=== PATIENT | male | born 1960 | race Asian ===

== ENCOUNTER 2019-10-25 10:27 | Emergency (ER) | payer OTHER ==
[~2019-10-25] VITALS: Ht 172.7 cm; Wt 76.2 kg
[2019-10-25 11:25] VITALS: BP 132/83
== END 2019-10-25 11:48 | disposition home or self-care (01) ==
LOC: ER 10:27
DX: D17.0 Benign lipomatous neoplasm of skin and subcutaneous tissue of head, face and neck (principal); K21.9 Gastro-esophageal reflux disease without esophagitis

== ENCOUNTER 2019-12-08 09:46 | Inpatient (IN) | payer MEDICAID, OTHER ==
[~2019-12-08] VITALS: Ht 172.7 cm; Wt 68.9 kg
[2019-12-08 10:31] LABS: Basophils # (auto) 0 10 ^3/uL (0-0.2); Basophils % (auto) 0.5 % (0.0-2.0); Eosinophils # (auto) 0.2 10 ^3/uL (0-0.8); Eosinophils % (auto) 3.9 % (0.0-7.0); Hematocrit 34.3 % (41.0-53.0); Hemoglobin 11.7 g/dL (13.5-17.5); Lymphocytes # (auto) 0.4 10 ^3/uL (0.4-5.4); Lymphocytes % (auto) 8.9 % (10.0-50.0); Mean Corpuscular Hemoglobin 30.8 pg (28.0-32.0); Mean Corpuscular Volume 90.8 fL (80.0-100.0); Monocytes # (auto) 0.4 10 ^3/uL (0-1.3); Monocytes % (auto) 8.2 % (0.0-12.0); Neutrophils # (auto) 3.9 10 ^3/uL (1.6-8.6); Neutrophils % (auto) 78.5 % (37.0-80.0); Nucleated Red Blood Cells % 0.1 %; Platelet Count (auto) 281 10^3/uL (140-450); Red Blood Cells 3.78 10^6/uL (4.5-5.90); Red Cell Distribution Width 13.6 % (11.8-14.3)
[2019-12-08 10:47] LABS: Albumin 4.1 g/dL (3.4-5.0); Anion Gap 10 (5-15); Blood Urea Nitrogen 15 mg/dL (7-18); Calcium 8.7 mg/dL (8.5-10.1); Carbon Dioxide 17 mmol/L (21-32); Chloride 90 mmol/L (98-107); Glucose 109 mg/dL (74-106); Potassium 4.6 mmol/L (3.5-5.1)
[2019-12-08 10:52] LABS: Alanine Aminotransferase 36 U/L (16-61); Alkaline Phosphatase 92 U/L (45-117); Aspartate Aminotransferase 43 U/L (15-37); BUN/Creatinine Ratio 8.9; Bilirubin, Total 0.3 mg/dL (0.2-1.0); GFR African American 55 mL/min; GFR Non-African American 45 mL/min; Total Protein 7.9 g/dL (6.4-8.2)
[2019-12-08 10:57] LABS: Sodium 117 mmol/L (136-145)
[2019-12-08] MEDS ORDERED: SODIUM CHLORIDE 0.9% 1,000 ML IV ONE ×2 (10:57)
[2019-12-08] MEDS ORDERED: TRAZ150T79 PO (11:48)
[2019-12-08] MEDS ORDERED: OLAN20TA13 PO (11:49)
[2019-12-08] MEDS ORDERED: GABA300C10 PO (11:51)
[2019-12-08] MEDS ORDERED: METO-158 PO (11:52)
[2019-12-08] MEDS ORDERED: FAMO-12 PO (11:52)
[2019-12-08] MEDS ORDERED: INSLANTI SC (11:54)
[2019-12-08 12:17] LABS: Urine WBC None Seen /hpf (0 - 3)
[2019-12-08 12:27] LABS: Urine Bacteria NONE SEEN /hpf (None Seen); Urine Blood Negative /uL (Negative); Urine Specific Gravity 1.006 (1.001-1.035)
[2019-12-08] MEDS ORDERED: NITROGLYCERIN 0.4 MG SL TAB SL PRN (14:00)
[2019-12-08] MEDS ORDERED: MORPHINE SULF INJ 2 MG/ML SYRINGE 1ML IV PRN (14:00)
[2019-12-08] MEDS ORDERED: ALBUTEROL SULF 2.5 MG/0.5ML(0.5%) NEB SOLN NEB PRN (14:45)
[2019-12-08] MEDS ORDERED: PROMETHAZINE HCL 25 MG/ML 1ML IV PRN (14:45)
[2019-12-08] MEDS ORDERED: TEMAZEPAM 15 MG CAP PO PRN (14:45)
[2019-12-08] MEDS ORDERED: LACTULOSE 20Gm/30ML SOLN PO PRN (14:45)
[2019-12-08] MEDS ORDERED: DEXTROSE (50%) 50ML SYRG IV PRN (14:45)
[2019-12-08 15:31] VITALS: BP 100/65
[2019-12-08] MEDS: SODIUM CHLORIDE 0.9% 1,000 ML IV SCH (16:10)
[2019-12-08 16:12] VITALS: BP 133/78
[2019-12-08] MEDS: ACCU-CHEK COMFORT CURVE STRIP VI SCH ×2 (17:00→22:00)
[2019-12-08] MEDS: DOXYCYCLINE 100MG/250ML 250 ML IV SCH (17:00)
[2019-12-08] MEDS: InsuLIN REG 1unit/0.01ml Soln (100units/ml) SC SCH ×2 (17:00→22:00)
[2019-12-08 20:00] VITALS: BP 142/79
[2019-12-08 22:00] VITALS: BP 110/66
[2019-12-08] MEDS: FAMOTIDINE 20 MG TAB PO SCH (22:55)
[2019-12-09] MEDS: SODIUM CHLORIDE 0.9% 1,000 ML IV SCH ×3 (02:29→20:38)
[2019-12-09] MEDS: DOXYCYCLINE 100MG/250ML 250 ML IV SCH ×2 (02:41→14:14)
[2019-12-09 05:00] VITALS: BP 118/74
[2019-12-09] MEDS: ACCU-CHEK COMFORT CURVE STRIP VI SCH ×4 (06:47→21:43)
[2019-12-09] MEDS: InsuLIN REG 1unit/0.01ml Soln (100units/ml) SC SCH ×4 (06:49→21:43)
[2019-12-09 07:19] LABS: Albumin 4.2 g/dL (3.4-5.0); Calcium 9.2 mg/dL (8.5-10.1); Potassium 4.6 mmol/L (3.5-5.1)
[2019-12-09 07:25] LABS: BUN/Creatinine Ratio 9.9; Bilirubin, Total 0.3 mg/dL (0.2-1.0)
[2019-12-09 08:30] VITALS: BP 114/77
[2019-12-09] MEDS: FAMOTIDINE 20 MG TAB PO SCH ×2 (11:25→21:43)
[2019-12-09] MEDS: ENOXAPARIN SOD 40 MG/0.4 ML SYRINGE SC SCH (11:25)
[2019-12-09 12:30] VITALS: BP 127/66
[2019-12-09] MEDS ORDERED: IBUP800T24 PO (16:28)
[2019-12-09] MEDS ORDERED: DOCU-147 PO (16:28)
[2019-12-09] MEDS ORDERED: LORA-622 PO (16:28)
[2019-12-09] MEDS ORDERED: METF-372 PO (16:28)
[2019-12-09] MEDS ORDERED: LOSA100T22 PO (16:28)
[2019-12-09] MEDS ORDERED: TEMA30CA5 PO (16:28)
[2019-12-09] MEDS ORDERED: SIMV10TA73 PO (16:28)
[2019-12-09 17:29] VITALS: BP 148/101
[2019-12-09] MEDS: traMADol HCL 50 MG TAB PO PRN (21:44)
[2019-12-09 22:00] VITALS: BP 150/101
[2019-12-10] MEDS: DOXYCYCLINE 100MG/250ML 250 ML IV SCH ×2 (02:59→13:58)
[2019-12-10] MEDS ORDERED: TEMAZEPAM 15 MG CAP PO PRN (04:45)
[2019-12-10 05:00] VITALS: BP 159/100
[2019-12-10] MEDS ORDERED: DEXTROSE (50%) 50ML SYRG IV PRN (05:00)
[2019-12-10] MEDS ORDERED: IBUPROFEN 800 MG TAB PO SCH (06:00)
[2019-12-10] MEDS: ACCU-CHEK COMFORT CURVE STRIP VI SCH ×4 (06:17→21:29)
[2019-12-10] MEDS: GABAPENTIN 300 MG CAP PO SCH ×3 (06:17→21:29)
[2019-12-10] MEDS: InsuLIN REG 1unit/0.01ml Soln (100units/ml) SC SCH ×4 (06:18→21:32)
[2019-12-10] MEDS: SODIUM CHLORIDE 0.9% 1,000 ML IV SCH (06:18)
[2019-12-10 06:45] VITALS: BP 143/104
[2019-12-10 09:00] VITALS: BP 181/101
[2019-12-10] MEDS: OLANZapine 5 MG TAB PO SCH (09:49)
[2019-12-10] MEDS: ENOXAPARIN SOD 40 MG/0.4 ML SYRINGE SC SCH (09:49)
[2019-12-10] MEDS: FAMOTIDINE 20 MG TAB PO SCH ×2 (09:50→21:29)
[2019-12-10] MEDS: LORATADINE 10 MG TAB PO SCH (09:50)
[2019-12-10] MEDS: LOSARTAN POTASSIUM 50 MG TAB PO SCH (09:52)
[2019-12-10] MEDS: INSULIN LANTUS (GLARGINE) 1 /0.01ml (100units/ml) SC SCH (09:58)
[2019-12-10] MEDS ORDERED: METOPROLOL TARTRATE 50 MG TAB PO SCH (10:00)
[2019-12-10] MEDS ORDERED: LABETALOL HCL 5 MG/ML 4ML SYRINGE IV PRN (11:15)
[2019-12-10 12:04] LABS: Calcium 8.9 mg/dL (8.5-10.1); Potassium 4.8 mmol/L (3.5-5.1)
[2019-12-10 12:06] LABS: BUN/Creatinine Ratio 9.3
[2019-12-10 13:00] VITALS: BP 140/89
[2019-12-10] MEDS ORDERED: METOPROLOL SUCCINATE XL 50 MG TAB PO ONE (13:45)
[2019-12-10] MEDS: MAGNESIUM SULFATE 1GM/100ML 100 ML IV SCH ×2 (16:17→16:36)
[2019-12-10 17:18] VITALS: BP 142/95
[2019-12-10] MEDS: MAGNESIUM OXIDE 400 MG TAB PO SCH (21:28)
[2019-12-10] MEDS: ATORVASTATIN 20 MG TAB PO SCH (21:28)
[2019-12-10] MEDS ORDERED: InsuLIN REG 1unit/0.01ml Soln (100units/ml) SC SCH (22:00)
[2019-12-11] MEDS: DOXYCYCLINE 100MG/250ML 250 ML IV SCH (02:30)
[2019-12-11] MEDS: GABAPENTIN 300 MG CAP PO SCH ×3 (05:08→21:05)
[2019-12-11 05:30] VITALS: BP 106/70
[2019-12-11] MEDS: ACCU-CHEK COMFORT CURVE STRIP VI SCH ×4 (05:54→21:06)
[2019-12-11] MEDS: InsuLIN REG 1unit/0.01ml Soln (100units/ml) SC SCH ×4 (05:56→21:08)
[2019-12-11 06:35] LABS: BUN/Creatinine Ratio 9.9; Calcium 9.3 mg/dL (8.5-10.1); Potassium 4.6 mmol/L (3.5-5.1)
[2019-12-11 09:00] VITALS: BP 103/75
[2019-12-11] MEDS: LORATADINE 10 MG TAB PO SCH (10:41)
[2019-12-11] MEDS: LOSARTAN POTASSIUM 50 MG TAB PO SCH (10:42)
[2019-12-11] MEDS: FAMOTIDINE 20 MG TAB PO SCH ×2 (10:43→21:06)
[2019-12-11] MEDS: MAGNESIUM OXIDE 400 MG TAB PO SCH ×2 (10:43→21:05)
[2019-12-11] MEDS: METOPROLOL TARTRATE 50 MG TAB PO SCH (10:43)
[2019-12-11] MEDS: OLANZapine 5 MG TAB PO SCH (10:43)
[2019-12-11] MEDS: ENOXAPARIN SOD 40 MG/0.4 ML SYRINGE SC SCH (10:44)
[2019-12-11] MEDS: INSULIN LANTUS (GLARGINE) 1 /0.01ml (100units/ml) SC SCH (10:51)
[2019-12-11 13:00] VITALS: BP 93/70
[2019-12-11] MEDS ORDERED: HALOPERIDOL 1 MG TAB PO PRN (13:00)
[2019-12-11 13:20] VITALS: BP 103/75
[2019-12-11 17:00] VITALS: BP 94/67
[2019-12-11] MEDS: ATORVASTATIN 20 MG TAB PO SCH (21:04)
[2019-12-11] MEDS: DOXYCYCLINE 100 MG TAB/CAP PO SCH (21:06)
[2019-12-11] MEDS: ACETAMINOPHEN 500 MG TAB PO PRN (21:06)
[2019-12-11 22:00] VITALS: BP 98/71
[2019-12-11 22:23] LABS: Creatinine, Urine 37 mg/dL (30.0-125.0); Sodium Urine 23 mmol/L (40-220)
[2019-12-12 05:00] VITALS: BP 94/54
[2019-12-12] MEDS: GABAPENTIN 300 MG CAP PO SCH ×3 (05:32→21:08)
[2019-12-12 06:00] VITALS: BP 98/71
[2019-12-12] MEDS: ACETAMINOPHEN 500 MG TAB PO PRN (06:11)
[2019-12-12] MEDS: ACCU-CHEK COMFORT CURVE STRIP VI SCH ×4 (06:11→22:18)
[2019-12-12] MEDS: InsuLIN REG 1unit/0.01ml Soln (100units/ml) SC SCH ×4 (06:16→22:00)
[2019-12-12 06:56] LABS: Basophils # (auto) 0 10 ^3/uL (0-0.2); Basophils % (auto) 0.5 % (0.0-2.0); Eosinophils # (auto) 0.8 10 ^3/uL (0-0.8); Eosinophils % (auto) 14.2 % (0.0-7.0); Hematocrit 35.5 % (41.0-53.0); Hemoglobin 12.2 g/dL (13.5-17.5); Lymphocytes # (auto) 0.7 10 ^3/uL (0.4-5.4); Lymphocytes % (auto) 11.8 % (10.0-50.0); Mean Corpuscular Hgb Conc. 34.2 g/dL (32.0-36.0); Mean Corpuscular Volume 90.6 fL (80.0-100.0); Monocytes # (auto) 0.4 10 ^3/uL (0-1.3); Monocytes % (auto) 7.8 % (0.0-12.0); Neutrophils # (auto) 3.8 10 ^3/uL (1.6-8.6); Neutrophils % (auto) 65.7 % (37.0-80.0); Nucleated Red Blood Cells % 0.1 %; Platelet Count (auto) 303 10^3/uL (140-450); Red Blood Cells 3.92 10^6/uL (4.5-5.90); Red Cell Distribution Width 13.4 % (11.8-14.3); White Blood Cell 5.8 10^3/uL (4.4-10.8)
[2019-12-12 07:15] LABS: BUN/Creatinine Ratio 16.1; Calcium 9.3 mg/dL (8.5-10.1)
[2019-12-12 09:00] VITALS: BP 117/82
[2019-12-12] MEDS: ENOXAPARIN SOD 40 MG/0.4 ML SYRINGE SC SCH (10:04)
[2019-12-12] MEDS: DOXYCYCLINE 100 MG TAB/CAP PO SCH ×2 (10:05→21:08)
[2019-12-12] MEDS: MAGNESIUM OXIDE 400 MG TAB PO SCH ×2 (10:05→21:07)
[2019-12-12] MEDS: LORATADINE 10 MG TAB PO SCH (10:05)
[2019-12-12] MEDS: FAMOTIDINE 20 MG TAB PO SCH ×2 (10:05→21:08)
[2019-12-12] MEDS: OLANZapine 5 MG TAB PO SCH (10:05)
[2019-12-12] MEDS: METOPROLOL TARTRATE 50 MG TAB PO SCH (10:06)
[2019-12-12] MEDS: LOSARTAN POTASSIUM 50 MG TAB PO SCH (10:06)
[2019-12-12] MEDS: INSULIN LANTUS (GLARGINE) 1 /0.01ml (100units/ml) SC SCH (10:28)
[2019-12-12 13:00] VITALS: BP 97/52
[2019-12-12 17:00] VITALS: BP 108/69
[2019-12-12] MEDS: ATORVASTATIN 20 MG TAB PO SCH (21:07)
[2019-12-12 22:00] VITALS: BP 111/71
[2019-12-13 05:00] VITALS: BP 120/77
[2019-12-13] MEDS: GABAPENTIN 300 MG CAP PO SCH ×3 (05:57→21:16)
[2019-12-13 06:03] LABS: Calcium 9.3 mg/dL (8.5-10.1); Potassium 5.4 mmol/L (3.5-5.1)
[2019-12-13] MEDS: ACCU-CHEK COMFORT CURVE STRIP VI SCH ×4 (06:38→21:22)
[2019-12-13] MEDS: InsuLIN REG 1unit/0.01ml Soln (100units/ml) SC SCH ×4 (06:39→21:27)
[2019-12-13 09:00] VITALS: BP 139/81
[2019-12-13] MEDS: METOPROLOL TARTRATE 50 MG TAB PO SCH (10:00)
[2019-12-13] MEDS: ENOXAPARIN SOD 40 MG/0.4 ML SYRINGE SC SCH (10:00)
[2019-12-13] MEDS: LOSARTAN POTASSIUM 50 MG TAB PO SCH (10:00)
[2019-12-13] MEDS: FAMOTIDINE 20 MG TAB PO SCH ×2 (10:21→21:16)
[2019-12-13] MEDS: MAGNESIUM OXIDE 400 MG TAB PO SCH ×2 (10:21→21:16)
[2019-12-13] MEDS: DOXYCYCLINE 100 MG TAB/CAP PO SCH ×2 (10:21→21:16)
[2019-12-13] MEDS: LORATADINE 10 MG TAB PO SCH (10:22)
[2019-12-13] MEDS: OLANZapine 5 MG TAB PO SCH (10:22)
[2019-12-13] MEDS: INSULIN LANTUS (GLARGINE) 1 /0.01ml (100units/ml) SC SCH (10:23)
[2019-12-13 13:00] VITALS: BP 109/72
[2019-12-13] MEDS ORDERED: SODIUM ZIRCONIUM CYCL 10 GM PAK PO ONE (14:15)
[2019-12-13 17:16] VITALS: BP 112/81
[2019-12-13] MEDS: ACETAMINOPHEN 500 MG TAB PO PRN (19:04)
[2019-12-13] MEDS: ATORVASTATIN 20 MG TAB PO SCH (21:16)
[2019-12-13] MEDS: traMADol HCL 50 MG TAB PO PRN (21:20)
[2019-12-13 22:00] VITALS: BP 146/78
[2019-12-14 05:00] VITALS: BP 137/81
[2019-12-14 06:03] LABS: Basophils # (auto) 0 10 ^3/uL (0-0.2); Basophils % (auto) 0.3 % (0.0-2.0); Eosinophils # (auto) 0.6 10 ^3/uL (0-0.8); Eosinophils % (auto) 12.9 % (0.0-7.0); Hematocrit 33.8 % (41.0-53.0); Hemoglobin 11.4 g/dL (13.5-17.5); Lymphocytes # (auto) 0.6 10 ^3/uL (0.4-5.4); Lymphocytes % (auto) 14.4 % (10.0-50.0); Mean Corpuscular Hemoglobin 30.9 pg (28.0-32.0); Mean Corpuscular Hgb Conc. 33.7 g/dL (32.0-36.0); Mean Corpuscular Volume 91.6 fL (80.0-100.0); Monocytes # (auto) 0.5 10 ^3/uL (0-1.3); Monocytes % (auto) 11.3 % (0.0-12.0); Neutrophils # (auto) 2.7 10 ^3/uL (1.6-8.6); Neutrophils % (auto) 61.1 % (37.0-80.0); Nucleated Red Blood Cells % 0.1 %; Platelet Count (auto) 291 10^3/uL (140-450); Red Blood Cells 3.69 10^6/uL (4.5-5.90); Red Cell Distribution Width 13.7 % (11.8-14.3); White Blood Cell 4.5 10^3/uL (4.4-10.8)
[2019-12-14] MEDS: GABAPENTIN 300 MG CAP PO SCH (06:16)
[2019-12-14] MEDS: ACCU-CHEK COMFORT CURVE STRIP VI SCH (06:16)
[2019-12-14] MEDS: traMADol HCL 50 MG TAB PO PRN (06:19)
[2019-12-14] MEDS: InsuLIN REG 1unit/0.01ml Soln (100units/ml) SC SCH (06:24)
[2019-12-14 06:31] LABS: Calcium 8.9 mg/dL (8.5-10.1); Potassium 4.4 mmol/L (3.5-5.1)
[2019-12-14 09:11] VITALS: BP 130/79
[2019-12-14] MEDS: OLANZapine 5 MG TAB PO SCH (10:18)
[2019-12-14] MEDS: FAMOTIDINE 20 MG TAB PO SCH (10:27)
[2019-12-14] MEDS: LOSARTAN POTASSIUM 50 MG TAB PO SCH (10:27)
[2019-12-14] MEDS: METOPROLOL TARTRATE 50 MG TAB PO SCH (10:28)
[2019-12-14] MEDS: LORATADINE 10 MG TAB PO SCH (10:28)
[2019-12-14] MEDS: MAGNESIUM OXIDE 400 MG TAB PO SCH (10:29)
[2019-12-14] MEDS: DOXYCYCLINE 100 MG TAB/CAP PO SCH (10:29)
[2019-12-14] MEDS: ENOXAPARIN SOD 40 MG/0.4 ML SYRINGE SC SCH (10:29)
[2019-12-14] MEDS: INSULIN LANTUS (GLARGINE) 1 /0.01ml (100units/ml) SC SCH (10:53)
[2019-12-14 11:55] VITALS: BP 130/79
[2019-12-14 13:39] VITALS: BP 130/79
== END 2019-12-14 12:42 | disposition home or self-care (01) | DRG 426 ==
LOC: ER 09:46 → TELE 09:47 → TELE-CENTR 15:24
PROVIDERS: ADMIT Internal Medicine; ATTEND Internal Medicine
DX: E87.1 Hypo-osmolality and hyponatremia (principal); N17.0 Acute kidney failure with tubular necrosis; G93.40 Encephalopathy, unspecified; J40 Bronchitis, not specified as acute or chronic; E11.65 Type 2 diabetes mellitus with hyperglycemia; M79.671 Pain in right foot; G89.29 Other chronic pain; I10 Essential (primary) hypertension; K21.9 Gastro-esophageal reflux disease without esophagitis; F17.210 Nicotine dependence, cigarettes, uncomplicated; E78.5 Hyperlipidemia, unspecified; Z79.899 Other long term (current) drug therapy; Z87.820 Personal history of traumatic brain injury; R73.9 Hyperglycemia, unspecified; E87.5 Hyperkalemia
CPT/HCPCS: 36415; 36600; 71045; 71250; 80048; 80053; 81001; 82570; 82805; 82962; 83036; 83735; 83930; 83935; 84300; 84484; 84550; 85025; 93005; 93306; 93971; 96360; 96361; G0378; J1815; J3490

== ENCOUNTER 2020-01-09 17:11 | Inpatient (IN) | payer MEDICAID ==
[~2020-01-09] VITALS: Ht 157.5 cm; Wt 69.0 kg
[~2020-01-09 17:11] MED LIST: DOCU-147 PO; FAMO-12 PO; GABA300C10 PO; IBUP800T24 PO; INSLANTI SC; LORA-622 PO; METF-372 PO; METO-158 PO; OLAN20TA13 PO; SIMV10TA73 PO; TEMA30CA5 PO; TRAZ150T79 PO
[2020-01-09] MEDS ORDERED: LABETALOL HCL 5 MG/ML 4ML SYRINGE IV ONE (17:30)
[2020-01-09 19:01] LABS: Alcohol, Urine < 3.0 mg/dL (0-10); Amphetamine Screen, Urine NEGATIVE (NEGATIVE); Barbiturate Scree,Urine NEGATIVE (NEGATIVE); Benzodiazephine Screen, Urine NEGATIVE (NEGATIVE); Cannabinoid Screen, Urine NEGATIVE (NEGATIVE); Cocaine Screen, Urine NEGATIVE (NEGATIVE); Opiate Scree,Urine NEGATIVE (NEGATIVE); Phencyclidine Screen, Urine NEGATIVE (NEGATIVE)
[2020-01-09 19:12] LABS: Basophils # (auto) 0 10 ^3/uL (0-0.2); Basophils % (auto) 0.4 % (0.0-2.0); Eosinophils # (auto) 0.8 10 ^3/uL (0-0.8); Eosinophils % (auto) 12.4 % (0.0-7.0); Hematocrit 32.7 % (41.0-53.0); Hemoglobin 11.2 g/dL (13.5-17.5); Lymphocytes # (auto) 0.6 10 ^3/uL (0.4-5.4); Lymphocytes % (auto) 9.2 % (10.0-50.0); Mean Corpuscular Hemoglobin 31.5 pg (28.0-32.0); Mean Corpuscular Hgb Conc. 34.2 g/dL (32.0-36.0); Mean Corpuscular Volume 92.3 fL (80.0-100.0); Monocytes # (auto) 0.3 10 ^3/uL (0-1.3); Monocytes % (auto) 5.3 % (0.0-12.0); Neutrophils # (auto) 4.8 10 ^3/uL (1.6-8.6); Neutrophils % (auto) 72.7 % (37.0-80.0); Nucleated Red Blood Cells % 0.1 %; Platelet Count (auto) 302 10^3/uL (140-450); Red Blood Cells 3.54 10^6/uL (4.5-5.90); Red Cell Distribution Width 13.6 % (11.8-14.3); White Blood Cell 6.6 10^3/uL (4.4-10.8)
[2020-01-09 19:21] LABS: Albumin 3.7 g/dL (3.4-5.0); Anion Gap 9 (5-15); Blood Urea Nitrogen 9 mg/dL (7-18); Calcium 8.9 mg/dL (8.5-10.1); Carbon Dioxide 20 mmol/L (21-32); Chloride 100 mmol/L (98-107); Glucose 136 mg/dL (74-106); Magnesium 1.7 mg/dL (1.6-2.6); Potassium 4.7 mmol/L (3.5-5.1); Sodium 129 mmol/L (136-145)
[2020-01-09 19:25] LABS: Alanine Aminotransferase 27 U/L (16-61); Alkaline Phosphatase 97 U/L (45-117); Aspartate Aminotransferase 19 U/L (15-37); BUN/Creatinine Ratio 7.7; Bilirubin, Total 0.1 mg/dL (0.2-1.0); GFR African American 83 mL/min; GFR Non-African American 68 mL/min; Total Protein 7.7 g/dL (6.4-8.2)
[2020-01-09] MEDS ORDERED: DEXTROSE (50%) 50ML SYRG IV PRN (21:15)
[2020-01-09] MEDS ORDERED: cloNIDine HCL 0.1 MG TAB PO PRN (21:15)
[2020-01-09] MEDS ORDERED: ACETAMINOPHEN 325 MG TAB PO PRN (21:15)
[2020-01-09] MEDS ORDERED: cefTRIAXone 1GM/50ML D5W 50 ML IV ONE (21:15)
[2020-01-09] MEDS ORDERED: TEMAZEPAM 15 MG CAP PO PRN (22:00)
[2020-01-09] MEDS: SODIUM CHLORIDE 0.9% 1,000 ML IV SCH (22:20)
[2020-01-09 23:01] VITALS: BP 145/84
[2020-01-09] MEDS: ACCU-CHEK COMFORT CURVE STRIP VI SCH (23:40)
[2020-01-09] MEDS: ATORVASTATIN 20 MG TAB PO SCH (23:40)
[2020-01-09] MEDS: ENOXAPARIN SOD 40 MG/0.4 ML SYRINGE SC SCH (23:40)
[2020-01-09] MEDS: InsuLIN REG 1unit/0.01ml Soln (100units/ml) SC SCH (23:40)
[2020-01-10] VITALS (7 sets, daily range): BP systolic 138–156; BP diastolic 83–97
[2020-01-10 06:24] LABS: Basophils # (auto) 0 10 ^3/uL (0-0.2); Basophils % (auto) 0.3 % (0.0-2.0); Eosinophils # (auto) 1.1 10 ^3/uL (0-0.8); Eosinophils % (auto) 14.4 % (0.0-7.0); Hemoglobin 11.4 g/dL (13.5-17.5); Lymphocytes # (auto) 0.5 10 ^3/uL (0.4-5.4); Lymphocytes % (auto) 6.6 % (10.0-50.0); Mean Corpuscular Hemoglobin 31.6 pg (28.0-32.0); Mean Corpuscular Hgb Conc. 34.6 g/dL (32.0-36.0); Mean Corpuscular Volume 91.3 fL (80.0-100.0); Monocytes # (auto) 0.4 10 ^3/uL (0-1.3); Neutrophils # (auto) 5.6 10 ^3/uL (1.6-8.6); Neutrophils % (auto) 73.7 % (37.0-80.0); Nucleated Red Blood Cells % 0.1 %; Platelet Count (auto) 358 10^3/uL (140-450); Red Blood Cells 3.62 10^6/uL (4.5-5.90); White Blood Cell 7.6 10^3/uL (4.4-10.8)
[2020-01-10 06:40] LABS: Calcium 8.9 mg/dL (8.5-10.1); Potassium 4.8 mmol/L (3.5-5.1)
[2020-01-10 06:41] LABS: BUN/Creatinine Ratio 6.9
[2020-01-10] MEDS: ACCU-CHEK COMFORT CURVE STRIP VI SCH ×4 (06:41→22:00)
[2020-01-10] MEDS: InsuLIN REG 1unit/0.01ml Soln (100units/ml) SC SCH ×4 (06:43→22:00)
[2020-01-10] MEDS: PANTOPRAZOLE 40 MG TAB PO SCH (08:58)
[2020-01-10] MEDS: METOPROLOL SUCCINATE XL 50 MG TAB PO SCH (08:58)
[2020-01-10] MEDS: cefTRIAXone 1GM/50ML D5W 50 ML IV SCH (08:59)
[2020-01-10] MEDS: SODIUM CHLORIDE 0.9% 1,000 ML IV SCH ×2 (11:03→23:55)
--- NOTE | 2020-01-10 11:55 | NUR ---
IV removal IV DC'd with clean sterile technique, catheter fully intact. Pressure dressing applied to site. Patient tolerated well.
--- NOTE | 2020-01-10 11:56 | NUR ---
Patient refused IV insertion.
[2020-01-10] MEDS: ONDANSETRON HCL 4 MG/2 ML VIAL IV PRN (17:51)
[2020-01-10] MEDS: ENOXAPARIN SOD 40 MG/0.4 ML SYRINGE SC SCH (18:04)
--- NOTE | 2020-01-10 19:30 | NUR ---
Opening Shift Note Assumed care of patient, awake and alert. No S/S of distress/SOB or pain. Instructed on POC and to call for assist PRN, will continue to monitor for changes Q1hr and PRN. Bed low with HOB in semi-Harvey's position. Call light within reach.
[2020-01-10] MEDS: HYDROcodone-ACET 10/325MG TAB PO PRN (21:25)
[2020-01-10] MEDS: ATORVASTATIN 20 MG TAB PO SCH (21:25)
[2020-01-10] MEDS ORDERED: traZODone HCL 50 MG TAB PO SCH (22:00)
[2020-01-10] MEDS ORDERED: LORazepam 2MG/ML-1ML VIAL IV PRN (22:00)
[2020-01-11 05:00] VITALS: BP 148/93
[2020-01-11] MEDS: ONDANSETRON HCL 4 MG/2 ML VIAL IV PRN ×2 (05:40→09:34)
[2020-01-11] MEDS: HYDROcodone-ACET 10/325MG TAB PO PRN ×3 (05:43→17:16)
[2020-01-11] MEDS: ACCU-CHEK COMFORT CURVE STRIP VI SCH ×3 (05:53→17:16)
[2020-01-11] MEDS: InsuLIN REG 1unit/0.01ml Soln (100units/ml) SC SCH ×3 (05:55→17:18)
[2020-01-11 07:42] LABS: Basophils # (auto) 0 10 ^3/uL (0-0.2); Basophils % (auto) 0.4 % (0.0-2.0); Eosinophils # (auto) 0.5 10 ^3/uL (0-0.8); Eosinophils % (auto) 7.2 % (0.0-7.0); Hematocrit 33.5 % (41.0-53.0); Hemoglobin 11.3 g/dL (13.5-17.5); Lymphocytes # (auto) 0.4 10 ^3/uL (0.4-5.4); Lymphocytes % (auto) 6.5 % (10.0-50.0); Mean Corpuscular Hgb Conc. 33.6 g/dL (32.0-36.0); Mean Corpuscular Volume 92.3 fL (80.0-100.0); Monocytes # (auto) 0.2 10 ^3/uL (0-1.3); Monocytes % (auto) 3.7 % (0.0-12.0); Neutrophils # (auto) 5.2 10 ^3/uL (1.6-8.6); Neutrophils % (auto) 82.2 % (37.0-80.0); Platelet Count (auto) 318 10^3/uL (140-450); Red Blood Cells 3.64 10^6/uL (4.5-5.90); Red Cell Distribution Width 13.9 % (11.8-14.3); White Blood Cell 6.3 10^3/uL (4.4-10.8)
[2020-01-11 08:40] LABS: BUN/Creatinine Ratio 5.8; Magnesium 1.9 mg/dL (1.6-2.6); Potassium 4.5 mmol/L (3.5-5.1)
[2020-01-11 09:00] VITALS: BP 143/95
[2020-01-11] MEDS: cefTRIAXone 1GM/50ML D5W 50 ML IV SCH (09:23)
[2020-01-11] MEDS: PANTOPRAZOLE 40 MG TAB PO SCH (09:24)
[2020-01-11] MEDS: METOPROLOL SUCCINATE XL 50 MG TAB PO SCH (09:25)
[2020-01-11] MEDS: SODIUM CHLORIDE 0.9% 1,000 ML IV SCH (13:15)
--- NOTE | 2020-01-11 13:36 | NUR ---
SPOKE WITH DOCTOR VARUN PATIENT CAN GO HOME AFTER EEG HAS BEEN DONE.
--- NOTE | 2020-01-11 13:44 | NUR ---
PATIENT TAKEN DOWN FOR MRI.
[2020-01-11 14:00] VITALS: BP 134/80
--- NOTE | 2020-01-11 14:14 | NUR ---
PATIENT BACK FROM MRI.
[2020-01-11 17:00] VITALS: BP 154/99
--- NOTE | 2020-01-11 17:00 | NUR ---
EEG: SPOKE WITH KEY MAKER TO FOLLOW UP ON WHY EEG HAD NOT BEEN COMPLETED, PENDING FOR CLEARANCE FOR DISCHARGE PER DR. BOND AND COURTNEY. PER KEY MAKER THE TECH EARLIER ATTEMPTED TO DO THE EEG BUT PATIENT WOULD NOT HOLD STILL. SHE STATED THE TECH HAD INFORMED DR. BOND AND HE WOULD RE EVALUATE THE PATIENT TO DETERMINE IF THEIR WAS NEED FOR EEG. WILL NOTIFY PRIMARY RN AMBIKA.
--- NOTE | 2020-01-11 17:09 | NUR ---
SS consult for home health services upon discharge. Faxed clinical information to [facility] and to [employer] ([phone]), contracted vendor with medical group. Pt accepted onto service and to be seen post discharge.
--- NOTE | 2020-01-11 17:41 | NUR ---
Doctor murphy at nurses station. Doctor Murphy informed that patient didnt complete eeg today D/T to much movement. Per doctor Murphy patient is okay to be D/C with out having the eeg done.
--- NOTE | 2020-01-11 17:50 | NUR ---
SPOKE WITH PATIENTS SISTER DENVER INFORMED HER THAT PATIENT WILL BE D/C AND WILL NEED TO FOLLOW UP WITH PCP AND NEUROLOGIST WITH IN 1-2 WEEKS.
[2020-01-11] MEDS: ENOXAPARIN SOD 40 MG/0.4 ML SYRINGE SC SCH (19:05)
--- NOTE | 2020-01-11 19:20 | NUR ---
Discharge instructions given as ordered. Encourage to follow up with PMD as instructed. All questions and concerns addressed. Patient verbalized understanding. Medication reconciliation form completed and copy given to patient family member. No home medications held in Pharmacy and none returned to patient, and no needed vaccines given. IV removed with catheter intact, pressure dressing applied. Patient taken to vehicle via wheelchair with all personal belongings, accompanied by staff and family member waiting in front lobby for transportation home. No distress noted at time of departure.
== END 2020-01-11 19:20 | disposition home health service (06) | DRG 52 ==
LOC: ER 17:11 → EDBD 17:11 → WEST WING 17:12 → UNDOADMIN 17:12 → OVERFLOW 17:12 → WEST WING 22:01 → OVERFLOW 22:01
PROVIDERS: ADMIT Nurse Practitioner; ATTEND Internal Medicine
DX: G93.41 Metabolic encephalopathy (principal); E11.319 Type 2 diabetes mellitus with unspecified diabetic retinopathy without macular edema; E11.42 Type 2 diabetes mellitus with diabetic polyneuropathy; G30.9 Alzheimer's disease, unspecified; F02.80 Dementia in other diseases classified elsewhere, unspecified severity, without behavioral disturbance, psychotic disturbance, mood disturbance, and anxiety; F17.210 Nicotine dependence, cigarettes, uncomplicated; K21.9 Gastro-esophageal reflux disease without esophagitis; E87.1 Hypo-osmolality and hyponatremia; H54.8 Legal blindness, as defined in USA; H91.90 Unspecified hearing loss, unspecified ear; F51.04 Psychophysiologic insomnia; J98.11 Atelectasis; R55 Syncope and collapse; I10 Essential (primary) hypertension; Z82.3 Family history of stroke; Z82.49 Family history of ischemic heart disease and other diseases of the circulatory system; Z87.820 Personal history of traumatic brain injury; Z83.3 Family history of diabetes mellitus; Z79.899 Other long term (current) drug therapy; Z89.431 Acquired absence of right foot; F43.10 Post-traumatic stress disorder, unspecified
CPT/HCPCS: 36415; 70450; 70551; 71045; 80048; 80053; 80307; 82962; 83735; 84484; 85025; 87040; 93005; 96374; 99291; G0378; J0696; J1815; J2405; J3490